=== PATIENT | male | born 1950 | race Caucasian/White ===

== ENCOUNTER 2021-07-17 06:51 | Observation (INO) ==
--- NOTE | 2021-07-16 08:23 | Anesthesiology Consultation ---
Date of Service July 16, 2021 Assessment & Plan (1) Encounter for pre-operative examination: - Pt requiring admission post-operatively. Plan for recheck with BRETT Grant AM DOS due to possibility that patient may have a roommate. OR aware. Grant order placed. - COVID screening: Per assessment on 07/11: No known COVID-19 positive contacts or current COVID-19 related symptoms. Travel screen negative. Patient vaccinated. Preop Covid test done 07/15 ([place]) was negative. Chart Review Chart Review: Acceptable Risk for Surgery and Patient NOT seen in Pre Admission Testing History Surgery Operation Date: 07/17/21 08:15 Proposed Procedures p Robotic Laparoscopic Assisted Radical Retropubic Prostatectomy, Possible Open, Possible Pelvic Lymph Node Dissectionm, Possible Suprapubic Tube Placement - Dakota Ocasio, DO Height/Weight Height: 5 ft 11 in Weight: 77.111 kg Allergies Allergy/AdvReac Type Severity Reaction Status Date / Time theophylline AdvReac Severe Nausea, Verified 07/11/21 11:38 headache Medications Home Medications Medication Instructions Recorded Confirmed Last Taken albuterol sulfate 90 mcg/actuation 1 puffs INH QID PRN 03/23/19 07/11/21 04/24/19 aerosol inhaler (ProAir HFA) fluticasone 250 mcg-salmeterol 50 1 puffs INH BID 03/23/19 07/11/21 05/01/19 04:30 mcg/dose blistr powdr for inhalation (Advair Diskus) alprazolam 0.5 mg tablet (Xanax) 0.5 mg PO BID PRN 04/19/19 07/11/21 04/30/19 21:00 0.25mg multivitamin 1 tab PO QAM 04/19/19 07/11/21 04/29/19 10:00 vitamin B complex 1 tab PO DAILY 04/19/19 07/11/21 04/29/19 10:00 vitamin E 400 unit capsule 400 unit PO DAILY 04/19/19 07/11/21 04/17/19 ibuprofen 200 mg tablet 400 mg PO Q6H PRN 07/11/21 07/11/21 Unknown simethicone 125 mg capsule 125 mg PO DAILY PRN 07/11/21 07/11/21 Unknown tamsulosin 0.4 mg capsule 0.4 mg PO HS 07/11/21 07/11/21 Unknown Past Medical History Medical History (Updated 07/16/21 @ 08:33 by Tara Yanes) Anxiety Asthma Bilateral hydrocele BPH w urinary obs/LUTS Cancer PROSTATE Depression Erectile dysfunction Hydrocele Migraine 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 PVCs (premature ventricular contractions) HX Past Family History Family History (Updated 07/11/21 @ 11:53 by Alyse Garcia, RN) Grandmother Diabetes Heart disease Father Bladder cancer Hypertension Mother Hypertension Grandfather (Paternal) Colorectal cancer Grandmother Diabetes Other No family history of adverse response to anesthesia Past Surgical History Surgical History H/O prostate biopsy History of colonoscopy History of esophagogastroduodenoscopy (EGD) History of hydrocelectomy S/P hernia repair umbilical Social History Smoking Status: Never smoker Do You Dip or Chew Tobacco: No Hx Alcohol Use: Yes Alcohol type: beer and wine alcohol intake frequency: 0-2 drinks per day Hx Substance Use: No substance use type: does not use Lab Results Anesthesia Preop Results Results Anesthesia Widget: Na 139 mmol/L (136-145) 06/18/21 K 4.6 mmol/L (3.5-5.1) 06/18/21 Cl 104 mmol/L (98-107) 06/18/21 CO2 27 mmol/L (21-32) 06/18/21 BUN 16 mg/dL (7-18) 06/18/21 Creat 0.92 mg/dL (0.6-1.4) 06/18/21 Glucose Level 95 mg/dL (70-99) 06/18/21 Testing Laboratory Results 06/18/21 WBC 8.3 H/H 15.8/46.6 PLT 244 07/02/21 UA negative Electrocardiogram Date: 07/04/21 NSR at 65bpm. Possible LAE. RBBB. Chest X-Ray Date: 07/04/21 Lungs mildly hyperexpanded. No acute findings.
[~2021-07-17 06:51] MED LIST: LR 15ML/HR IV SCH; ceFAZolin 2000MG 2,000 MG/15 ML SYR IV SCH
[2021-07-17] MEDS ORDERED: ePHEDrine sulfate 50 MG/ML AMP IV PRN (07:02)
[2021-07-17] MEDS ORDERED: ATROPINE SULFATE 0.1 MG/ML 10ML SYR IV PRN (07:02)
[2021-07-17] MEDS ORDERED: ONDANSETRON INJ 2 MG/ML 2 ML VIAL IV PRN ×2 (07:02→14:00)
[2021-07-17] MEDS ORDERED: GLYCOPYRROLATE 0.2 MG/ML VIAL ONE (07:43)
[2021-07-17] MEDS ORDERED: MIDAZOLAM HCL 1 MG/ML 2ML VIAL ONE (07:43)
[2021-07-17] MEDS ORDERED: NEOSTIGMINE METHYLSULFATE 1 MG/ML 10ML VIAL ONE (07:43)
[2021-07-17] MEDS ORDERED: PROPOFOL IV EMULSION 10 MG/ML 20 ML VIAL IV ONE ×2 (07:43→09:35)
[2021-07-17] MEDS ORDERED: ROCURONIUM BROMIDE 10 MG/ML 5 ML VIAL IV ONE ×7 (07:43→10:32)
[2021-07-17] MEDS ORDERED: DEXAMETHASONE SOD INJ 4 MG/ML VIAL ONE (07:43)
[2021-07-17] MEDS ORDERED: LIDOCAINE 2% 2 ML VIAL/AMP(20MG/ML) INFIL ONE (07:43)
[2021-07-17] MEDS ORDERED: fentaNYL citrate 100 MCG/2 ML VIAL ONE ×3 (07:44→09:59)
--- NOTE | 2021-07-17 07:45 | History & Physical Bridge Note ---
Date of Service July 17, 2021 History & Physical Bridge Note I have examined the patient, reviewed the History & Physical and in the interval since the performance of the History & Physical I have noted the following changes of clinical significance: no changes noted
[2021-07-17] MEDS ORDERED: ACETAMINOPHEN 1000 MG/100 ML IV IV ONE (07:54)
[2021-07-17] MEDS ORDERED: BUPIVACAINE 0.5 % 5 MG/1 ML MPF 30ML VIAL ONE (08:26)
[2021-07-17] MEDS ORDERED: ePHEDrine sulfate 50 MG/ML AMP ONE (09:44)
[2021-07-17] MEDS ORDERED: FLOSEAL HEMOSTATIC MATRIX 10ML TOP ONE (11:33)
--- NOTE | 2021-07-17 12:15 | Operative Report ---
[facility] Post Operative Report Pre & Post Diagnosis Operation Date: 07/17/21 08:15 Pre-Op Diagnosis: Prostate Cancer Post-Op Diagnosis: Prostate Cancer I identified the patient and participated in the time-out.: Yes Procedure Operation Date: 07/17/21 08:15 Actual Procedures p Robotic Laparoscopic Assisted Radical Prostatectomy and Bilateral Pelvic Lymph Node Dissection(Not Applicable) - Dakota Ocasio DO Surgeon Dakota Ocasio, II, DO Web Marketing Assistant Francis ROBERSON Estimated Blood Loss 50 Findings Consistent with Post-Op Diagnosis Specimens Prostate and Seminal Vesicle Left Pelvic Lymph Nodes Right Pelvic Lymph Nodes. Drains 18 Fr Uriostegui catheter. 9 Fr flat drain Anesthesia Type General Complications none Disposition Disposition: Recovery Room Indications Patient with Prostate Cancer. Risk and benefits were discussed at length. Patient elected to undergo robotic assisted laparoscopic Radical Prostatectomy. Description of Procedure The patient was brought to the operative suite and placed under general endotracheal intubation anesthesia in the supine position. The patient was transferred to the dorsal lithotomy position. At this point, the patient prepped and draped in the usual sterile fashion and a timeout was completed. Preoperative antibiotics of Ancef 2 grams had been given. DAGOBERTO's and SCD's were placed on the patient's lower extremities. A catheter was placed using sterile technique. With the time out completed the patient was placed into Trendelenburg and the skin at the umbilicus was anesthetized. A small incision was made superior to the umbilicus. A Varess Needle was placed and confirmed to be in the abdominal cavity. Water drop test passed. The Abdominal cavity was insufflated to 15 mmHG. The camera port was then placed. A laparoscopic camera was placed into the port and the abdominal cavity inspected. No concerning features were noted. At this point, the skin was marked for port placement and 8mm working ports were placed. The skin was anesthetized down to fascia and an approx 1cm incision was made to place the 3 x 8mm ports. A 12mm and 5 mm printer's assistant ports were also brianne tad in similar fashion under direct visualization. The patient was transferred into steep Trendelenburg position and the legs lowered. The robot was positioned and docked. The camera was placed and all trocars were positioned under direct visualization. Francis ROBERSON was integral in port placement, camera utilization, and docking procedure. She remained in sterile attire and then proceeded to assist the remainder of the case. At this point, I transitioned to the robotic console. At this point, the sigmoid colon was mobilized superiorly and the pelvis assessed. Adhesions were freed to allow mobilization. The peritoneum in the midline was opened between rectum and bladder and the vas deferens and seminal vesicles exposed. These were dissected with blunt technique. The vas was clipp ed and cut and mobilized. Cautery was used to assist dissection avoiding the tissue posteriorly near the rectum. The tissues lateral to the seminal vesicles were clipped with a hemolock and all bleeding controlled. This was taken as inferior as possible from this position. The medial umbilical ligaments were then identified and the peritoneum directly lateral on the right followed by the left was opened. The tissues were bluntly dissected to free the bladder's lateral attachments. This was taken down to the pubic bone and exposed the endopelvic fascia bilaterally. The medial ligaments were cut and the bladder dropped. The tissues was dissected anterior to the prostate. The endopelvic fascia on each side was then opened and the lateral edges of the prostate dissected. The Dorsal venous complex of the prostate was dissected and assessed. A 2-0 suture was used to ligate the vessels. A suspension stitch was used and clipped. Electrocautery was used to cut the anterior attachments, the puboprostatic ligaments, and venous tissues. The uriostegui was manipulated to better visual the bladder neck and dissection was taken using electrocautery. The bladder neck was opened and dissected from the prostate. The UO were identified and dissection taken in a direction to avoid each side. The vas stump and seminal vesicles were exposed and used to assist in traction to dissect. The prostatic pedicles were better exposed. The posterior prostate was dissected. An attempt was made to limit cautery and utilize cold dissection of the lateral posterior prostate to attempt preservation of the neurovascular bundle bilaterally. Hemolock clips were utilized to clip the prostatic pedicle bilaterally. The dissection was taken to the apex of the prostate. The anterior prostate was released and the urethra exposed. Cold cutting was used to open the anterior portion and expose the catheter. This was removed and the urethra incised. The prostate was further freed and grasped and removed from the field. The entire dissection bed was inspected.Hemostatic agent was placed in the region. No areas of injury or bleeding was noted. Care was taken to examine the perirectal tissues. A probe was placed and no injuries or other issues were observed. The bladder neck and urethra were then approximated with a running barbed suture starting at the 5 o'clock position and moving to the 12 o'clock on each side. This was tied at the anterior portion. A leak test was completed without any evidence of issues. The right and left pelvic lymph tissue was identified in relation to the iliac vessels. Distal dissection was taken to the Node of [place]. Inferiorly the obturator vessels and nerve were identified. Lymphatic tissue within the surround fat tissue was dissected. This packet of tissues were sent for pathologic analysis and lymph node assessment. This was done for each separate side. Hemostatic agent was placed on the exposed vessels. The entire dissection space was inspected one final time. No bleeding or injuries or areas of concern were noted. No tumor or other concerning features were noted. At this point, the robot was undocked and moved away from the patient. The patient was taken out of Trendelenberg. The port sites were all assessed laparoscopically. The endoscopic bag was moved into the midline port. The 12 mm port site used to place a drain in the pelvis. The other ports were assessed and no issues observed. The umbilical incision was opened further exposing fascia which was then opened in order to removed the prostate in the bag. The prostate was removed. A running PDS suture was used to close fascia. The skin at each site was closed with a stapler. The area was cleaned and bandages placed on each incision. The patient was cleaned and bandaged, aroused from anesthesia, and transferred to the pacu in stable condition having tolerated the procedure well with no complications. I was present and participated in all aspects of the procedure. Francis ROBERSON was critical in the portions as mentioned above. Will plan to observe postoperatively and monitor. Uriostegui to be remain in place until followup. I attest to the content of the Intraoperative Record and any orders documented therein. Any exceptions are noted below.
[2021-07-17] MEDS: fentaNYL citrate 100 MCG/2 ML VIAL IV PRN ×2 (12:42→12:47)
--- NOTE | 2021-07-17 12:55 | Anesthesiology Progress Note ---
Date of Service July 17, 2021 Anesthesia Post Procedure Vital Signs Vital Signs: Temp Pulse Pulse Resp BP Pulse Ox 07/17/21 12:50 65 18 104/61 95 07/17/21 12:40 63 18 105/61 95 07/17/21 12:30 63 16 87/54 L 97 07/17/21 12:21 97.7 F 68 14 98/46 L 97 07/17/21 07:15 97.9 F 74 20 171/90 H 96 Transfer of Care Handoff Completed per policy Notes Mental Status: alert / awake / arousable and participated in evaluation Patient Amnestic to Procedure: Yes Nausea / Vomiting: adequately controlled Pain: adequately controlled Airway Patency, RR, SpO2: stable & adequate BP & HR: stable & adequate Hydration State: stable & adequate Anesthetic Complications: no major complications apparent and Pt Satisfied with anesthetic care
[2021-07-17 13:03] LABS: Basophils # (auto) 0.02 K/uL (0-0.2); Basophils % (auto) 0.2 %; Eosinophils # (auto) 0.01 K/uL (0-0.5); Eosinophils % (auto) 0.1 %; Hemoglobin 13.4 g/dL (14.0-18.0); Immature Granulocytes # (auto) 0.03 K/uL (0.00-0.02); Immature Granulocytes % (auto) 0.2 %; Lymphocytes # (auto) 0.53 K/uL (1.2-3.4); Lymphocytes % (auto) 4.3 %; Mean Corpuscular Hemoglobin 32.1 pg (25-34); Mean Corpuscular Volume 95.7 fL (80-100); Mean Platelet Volume 10.6 fL (7.4-10.4); Monocytes # (auto) 0.26 K/uL (0.11-0.59); Monocytes % (auto) 2.1 %; Neutrophils # (auto) 11.38 K/uL (1.4-6.5); Neutrophils % (auto) 93.1 %; Platelet Count 190 K/uL (130-400); RDW Coefficient of Variation 13.7 % (11.5-14.5); RDW Standard Deviation 48.1 fL (36.4-46.3); Red Blood Count 4.18 M/uL (4.7-6.1); White Blood Count 12.23 K/uL (4.8-10.8)
[2021-07-17 13:16] LABS: Mean Corpuscular Hgb Conc 33.5 g/dL (32-36)
[2021-07-17 13:36] LABS: BUN Creatinine Ratio 14.2 (10-20); Calcium 8.3 mg/dl (8.5-10.1); Creatinine Clr Calc Pharmacy 64.8 ml/min; Est GFR (African American) 75.9 ml/min; Est GFR (Non-African American) 65.5 ml/min; Potassium 4.4 mmol/L (3.5-5.1)
[2021-07-17] MEDS ORDERED: MoRPHine SULFATE 4 MG/ML 1 ML CARP\\VIAL IV PRN (14:00)
[2021-07-17] MEDS ORDERED: ALPRAZolam 0.5 MG TABLET PO PRN (14:00)
[2021-07-17] MEDS ORDERED: ACETAMINOPHEN 325 MG TAB PO PRN (14:00)
[2021-07-17] MEDS ORDERED: oxyCODONE HCL IR 5 MG TAB (IMMEDIATE RELEASE) PO PRN (14:00)
[2021-07-17] MEDS ORDERED: MoRPHine SULFATE 2 MG/ML CARP IV PRN (14:00)
[2021-07-17] MEDS ORDERED: ALBUTEROL HFA 8 GM INHALER INH PRN (14:09)
[2021-07-17] MEDS: LACTATED RINGER'S 1,000 ML IV SCH ×2 (14:10→23:59)
[2021-07-17] MEDS: ceFAZolin 2000MG 2,000 MG/15 ML SYR IV SCH (17:55)
[2021-07-17] MEDS: HEPARIN SOD 5,000 UNIT/0.5 ML VIAL SQ SCH (20:15)
[2021-07-17] MEDS: DOCUSATE SODIUM 100 MG CAP PO SCH (20:15)
[2021-07-17] MEDS: oxyCODONE HCL IR 5 MG TAB (IMMEDIATE RELEASE) PO PRN (22:55)
[2021-07-18] MEDS ORDERED: SODIUM CHLORIDE 0.65% NA SOLN 45 ML (OCEAN) PRN (02:43)
[2021-07-18] MEDS ORDERED: SODIUM CHLORIDE 0.65% NA SOLN 45 ML (OCEAN) ONE (02:48)
[2021-07-18] MEDS: ceFAZolin 2000MG 2,000 MG/15 ML SYR IV SCH (02:51)
[2021-07-18 07:04] LABS: Basophils # (auto) 0.01 K/uL (0-0.2); Basophils % (auto) 0.1 %; Eosinophils # (auto) 0.02 K/uL (0-0.5); Eosinophils % (auto) 0.2 %; Immature Granulocytes # (auto) 0.02 K/uL (0.00-0.02); Immature Granulocytes % (auto) 0.2 %; Lymphocytes # (auto) 1.54 K/uL (1.2-3.4); Lymphocytes % (auto) 13.3 %; Mean Corpuscular Hemoglobin 32.9 pg (25-34); Mean Corpuscular Hgb Conc 34.3 g/dL (32-36); Mean Corpuscular Volume 95.9 fL (80-100); Mean Platelet Volume 10.5 fL (7.4-10.4); Monocytes # (auto) 0.92 K/uL (0.11-0.59); Monocytes % (auto) 7.9 %; Neutrophils # (auto) 9.09 K/uL (1.4-6.5); Neutrophils % (auto) 78.3 %; Platelet Count 188 K/uL (130-400); RDW Coefficient of Variation 13.6 % (11.5-14.5); Red Blood Count 3.65 M/uL (4.7-6.1)
[2021-07-18 07:19] LABS: BUN Creatinine Ratio 13.2 (10-20); Calcium 8.4 mg/dl (8.5-10.1); Creatinine Clr Calc Pharmacy 80.4 ml/min; Est GFR (African American) 98.6 ml/min; Est GFR (Non-African American) 85.1 ml/min; Potassium 4.3 mmol/L (3.5-5.1)
--- NOTE | 2021-07-18 07:45 | Urology Progress Note ---
Date of Service July 18, 2021 Assessment & Plan (1) Prostate cancer: Plan: - POD #1 s/p Robotic Laparoscopic Assisted Radical Prostatectomy and Bilateral Pelvic Lymph Node Dissection - Pt doing ok, reports some mild- mod abd pain/soreness this morning. - Afebrile, hemodynamically stable. - Labs reviewed - Wbc 11.60, Hemoglobin 12.0, Creatinine 0.91. - Jackson catheter draining clear yellow urine with good output. - ELISSA intact with serosanguineous drainage. - Incisions appropriate, [place] intact. Plan- - Maintain Jackson catheter. - Continue ELISSA drain for now, will continue to monitor output. - Advance diet. - Encourage ambulation. - Continue supportive care and pain management. - Will reassess this afternoon, possibly home later today or tomorrow pending patient progression. Admission and Anticipated Discharge Date Admission Date: July 17, 2021 Subjective Pt examined at bedside this AM. Awake, resting in bed on arrival. No acute issues overnight. Reports mild-mod abdominal pain/soreness. Jackson intact, draining clear yellow urine. Output overnight 1150ml ELISSA intact with serosanguineous drainage, 60ml output overnight. Denies fevers or chills. Tolerating clear liquid diet, no nausea or vomiting. Did have some indigestion last night. No flatus. Has not yet ambulated. Review of Systems Constitutional: as per Subjective / HPI Gastrointestinal: as per Subjective / HPI Genitourinary: + as per Subjective / HPI Physical Exam Constitutional: no acute distress Respiratory: normal respiratory effort; no respiratory distress and no labored breathing Gastrointestinal (Abdomen): Inspection/Auscultation: abdomen not distended Percussion/Palpation: + abdomen tender (Mild tenderness with palpation) and abdomen soft; no guarding and abdomen not rigid Incisions appropriate. [place] intact. ELISSA intact with serosanguineous drainage. Musculoskeletal: Extremities: extremities normal to inspection Skin: No visible rashes or lesions. Warm and dry. Neurologic: moves all extremities and awake Psychiatric: A+Ox3, euthymic affect Genitourinary: Jackson catheter intact, draining clear yellow urine Results & Data ([facility]) Vital Signs (Past 12 Hours) Vital Signs Temp Pulse Resp BP Pulse Ox 07/18/21 02:03 36.6 C 71 16 137/73 93 07/17/21 22:29 36.7 C 80 16 135/71 96 PG Care Time/CCT Total # of Minutes Spent Total Time Spent with Patient: Total time spent is greater than 50% in coordination of care (as documented) at patient's floor/unit and/or counseling patient: Coding Level of Care Code 30330 Subseq Hosp Care Lvl 2 Diagnoses Prostate cancer C61
[2021-07-18] MEDS: FLUTICASONE/VILANTEROL 200/25MCG 14 PUFFS/INHALER INH SCH (08:24)
[2021-07-18] MEDS: DOCUSATE SODIUM 100 MG CAP PO SCH ×2 (08:24→19:35)
[2021-07-18] MEDS: HEPARIN SOD 5,000 UNIT/0.5 ML VIAL SQ SCH ×2 (08:24→19:36)
[2021-07-18] MEDS: LACTATED RINGER'S 1,000 ML IV SCH ×2 (09:35→19:35)
[2021-07-18] MEDS: oxyCODONE HCL IR 5 MG TAB (IMMEDIATE RELEASE) PO PRN (11:47)
[2021-07-18] MEDS: CALCIUM CARBONATE 500 MG CHEWABLE TAB PO PRN (17:49)
[2021-07-19] MEDS: CALCIUM CARBONATE 500 MG CHEWABLE TAB PO PRN (00:14)
[2021-07-19] MEDS: LACTATED RINGER'S 1,000 ML IV SCH (04:55)
[2021-07-19 06:22] LABS: Basophils # (auto) 0.02 K/uL (0-0.2); Basophils % (auto) 0.2 %; Eosinophils # (auto) 0.02 K/uL (0-0.5); Eosinophils % (auto) 0.2 %; Hematocrit (blood only) 37.3 % (42-52); Hemoglobin 12.4 g/dL (14.0-18.0); Immature Granulocytes # (auto) 0.02 K/uL (0.00-0.02); Immature Granulocytes % (auto) 0.2 %; Lymphocytes # (auto) 1.54 K/uL (1.2-3.4); Lymphocytes % (auto) 17.1 %; Mean Corpuscular Hemoglobin 31.9 pg (25-34); Mean Corpuscular Hgb Conc 33.2 g/dL (32-36); Mean Corpuscular Volume 95.9 fL (80-100); Mean Platelet Volume 10.5 fL (7.4-10.4); Monocytes # (auto) 0.62 K/uL (0.11-0.59); Monocytes % (auto) 6.9 %; Neutrophils # (auto) 6.76 K/uL (1.4-6.5); Neutrophils % (auto) 75.4 %; Platelet Count 202 K/uL (130-400); RDW Coefficient of Variation 13.8 % (11.5-14.5); RDW Standard Deviation 48.1 fL (36.4-46.3); Red Blood Count 3.89 M/uL (4.7-6.1); White Blood Count 8.98 K/uL (4.8-10.8)
[2021-07-19 06:52] LABS: Calcium 8.4 mg/dl (8.5-10.1); Creatinine Clr Calc Pharmacy 91.5 ml/min; Est GFR (African American) 104.9 ml/min; Est GFR (Non-African American) 90.5 ml/min; Potassium 3.6 mmol/L (3.5-5.1)
[2021-07-19] MEDS: FLUTICASONE/VILANTEROL 200/25MCG 14 PUFFS/INHALER INH SCH (08:40)
[2021-07-19] MEDS: DOCUSATE SODIUM 100 MG CAP PO SCH (08:41)
[2021-07-19] MEDS: HEPARIN SOD 5,000 UNIT/0.5 ML VIAL SQ SCH (08:45)
--- NOTE | 2021-07-19 10:27 | Urology Progress Note ---
Date of Service July 19, 2021 Assessment & Plan (1) Prostate cancer: Plan: Status post prostatectomy ELISSA out now Home with Jackson Discussed adhesive reaction and avoidance of tape is much as possible Discussed restrictions at home Admission and Anticipated Discharge Date Admission Date: July 17, 2021 Subjective Substantially improved today Limited pain Had some gas issues overnight but has not had reliefanxious to go home Urine clear ELISSA serosanguineous Physical Exam Physical Exam: Dressings removedhe does have adhesive reaction with some blistering of the skin from the adhesivethe incisions themselves look quite healthy and appropriate ELISSA serosanguineous Urine completely clear Results & Data ([facility]) Vital Signs (Past 12 Hours) Vital Signs Temp Pulse Resp BP Pulse Ox 07/19/21 07:18 36.7 C 77 16 166/88 H 93 PG Care Time/CCT Total # of Minutes Spent Total Time Spent with Patient: Total time spent is greater than 50% in coordination of care (as documented) at patient's floor/unit and/or counseling patient: Coding Level of Care Code 49439 Subseq Hosp Care Lvl 2 Diagnoses Prostate cancer C61
--- NOTE | 2021-07-22 11:36 | Discharge Summary ---
Date of Service July 22, 2021 Admission HPI Per Admitting Provider See H&P Admission Exam Per Admitting Provider See H&P Principal Diagnosis Prostate Cancer Discharge Exam General: Alert in no acute distress. HEENT: Normocephalic Atraumatic. Inspection normal. Psychologic: Normal affect. Skin: [place] and Dry. No rashes or visible lesions. Abdomen: Soft Non-distended. No rebound or guarding. Discharge Data Allergies Allergy/AdvReac Type Severity Reaction Status Date / Time theophylline AdvReac Severe Nausea, Verified 07/20/21 19:39 headache Procedures Performed Operation Date: 07/17/21 08:15 Actual Procedures p Robotic Laparoscopic Assisted Prostatectomy, Pelvic Lymph Node Dissection(Not Applicable) - Dakota Ocasio DO Hospital Course (1) Prostate cancer: Status post prostatectomy ELISSA out now Home with Jackson Discussed adhesive reaction and avoidance of tape is much as possible Discussed restrictions at home Total Time Total Time Spent Total Time Spent (In Minutes): 10 minutes Total Time Includes: Examination of the Patient, Discharge Planning, Medication Reconciliation and Communication With Other Providers Discharge Plan Discharge Items Patient Disposition: Home - Self-Care Reason For Visit: Prostate Cancer Discharge Diagnosis: Prostate Cancer Activity: Per Instructions section Lifting: No more than 25 pounds Bathing Comment: OK to shower. No tub baths or soaks. Sexual Activity: Wait until after follow-up appointment Exercise/Sports: Wait until after follow-up appointment Driving/Machine Use: Do not drive if taking prescription pain medication. Non-emergency contact: Surgeon and Urologist Call non-emergency contact if: you have any medication questions, your pain is not controlled, your pain is worsening, you have a fever, your wound has increased redness, your wound has increased drainage and your wound pain has increased Follow-up/Referrals: Dakota Ocasio DO [Physician] - 07/29/21 10:30 am Emil Handy [Primary Care Provider] - [facility],Nurse [FAKE FOR SCHEDULES] - Diet: Regular Addtl Attending Provider Instructions: Please take all medications as prescribed and keep all follow-ups as scheduled. Please call our office at [phone] with any questions, concerns or need to reschedule appointments for any reason. We are happy to assist you We have sent an antibiotic to your pharmacy of choice. Please begin antibiotic as prescribed the day BEFORE your scheduled catheter removal at [facility]. Please continue antibiotic every 12 hours through the day AFTER your catheter removal. Activity: We recommend having someone with you for the first few days after surgery to help care for you. For the first 2 weeks after surgery, we would like you to get up and walk around your house. However, we recommend limit physical activity that would increase your heart rate. This will allow your body to rest and heal. Take naps if you feel tired. Don't lift anything heavier than 10 pounds, mow the law or ride a bicycle until your follow-up appointment. Please avoid long car rides. Home Care: Unless directed otherwise, drink 6 to 8 glasses of water a day (enough to keep your urine light colored). This will also help keep a healthy flow of urine. We recommend using a stool softener for the first two weeks to avoid constipation. Jackson Catheter or Suprapubic Catheter care: Keep the catheter well secured with either a leg back or leg strap with large bag. Empty your bag when it's about half full. You may notice some blood in the bag. This is normal after surgery and while the catheter is in place. Use mild soap (such as Dove or Dial) and water to wash the catheter and the head of your penis daily, or more frequently if needed. Return to your normal diet, we encourage good protein intake to promote healing. You may shower as normal. Please avoid tub baths or soaking until catheter removed and incisions well healed. Wearing sweat pants while you have the catheter is recommended, they will be more comfortable. Follow-up Your follow up appointments for having your catheter removed, and follow up with your physician should already be scheduled. If you have any questions regarding this, please contact our office. Your final pathology report will be discussed at your physician follow-up appointment. Call [facility] at [phone] right away if you have any of the following: Chest pain or trouble breathing (call [phone] or go to the hospital) Fever of 101F or higher, uncontrolled vomiting Heavy bleeding, clots, or bright red blood from the catheter Catheter that falls out or stops draining Foul-smelling discharge from your catheter Redness, swelling, warmth, or increased pain at your incision site Drainage, pus, or bleeding from your incision Pending Studies at Discharge: Yes Studies:: pathology Stand-Alone Forms: My [facility], Smoking Cessation Medications and DC Order Prescriptions: New docusate sodium [Colace] 100 mg capsule 100 mg PO BID Qty: 30 RF: 0 oxycodone-acetaminophen [Percocet] 5-325 mg tablet 1 tab PO Q8H PRN (Reason: pain) Qty: 7 RF: 0 Continued fluticasone propion-salmeterol [Advair Diskus] 250-50 mcg/dose blister with device 1 puffs INH BID RF: 0 albuterol sulfate [ProAir HFA] 90 mcg/actuation HFA aerosol inhaler 1 puffs INH QID PRN (Reason: wheezing/sob) RF: 0 alprazolam [Xanax] 0.5 mg Tablet 0.5 mg PO BID PRN (Reason: Anxiety) RF: 0 multivitamin Tablet 1 tab PO QAM RF: 0 vitamin B complex Tablet 1 tab PO DAILY RF: 0 vitamin E 400 unit Capsule 400 unit PO DAILY RF: 0 tamsulosin 0.4 mg capsule 0.4 mg PO HS RF: 0 ibuprofen 200 mg Tablet 400 mg PO Q6H PRN (Reason: Pain) RF: 0 simethicone 125 mg Capsule 125 mg PO DAILY PRN (Reason: Acid Reflux) RF: 0 Discharge Orders: Discharge Order (Routine); Ordered 07/19/21 Ordered By: Tay Duckworth Admission Data Admit Date/Time: 07/17/21 12:26 Attending Provider: Dakota Ocasio Admit Provider: Dakota Ocasio Primary Care Provider: Emil Handy Other Interventions: Discharge Summary Assessment (RN) Last Done: 07/19/21 11:54 Coding Level of Care Code D/C DAY MANAGEMENT <30 MINS Diagnoses Prostate cancer C61
== END 2021-07-19 14:18 | disposition home or self-care (01) | DRG 708 ==
LOC: ASU 06:51 → 3E 12:26 → INTOOBSV 12:26